=== PATIENT | male | born 1990 | race African-American/Black ===

== ENCOUNTER 2020-06-08 16:10 | Emergency (ER) | payer OTHER ==
[2020-06-09 11:41] LABS: SARS-CoV-2 MS2 Positive; SARS-CoV-2 N Gene Negative; SARS-CoV-2 S Gene Negative; SARS-CoV-2 by NAA Not Detected (NotDetected); SARS-CoV-2 orf1ab Negative
== END 2020-06-08 17:00 | disposition home or self-care (01) ==
LOC: ERS 16:10
DX: R09.89 Other specified symptoms and signs involving the circulatory and respiratory systems (principal); Z20.828 Contact with and (suspected) exposure to other viral communicable diseases
CPT/HCPCS: 87635; 99283; U0003